=== PATIENT | male | born 1940 | race Caucasian/White ===

== ENCOUNTER → 2017-04-19 | Outpatient (CLI) | payer MEDICARE, BC ==
[~2017-04-19] MED LIST: COLACE-DPS100 MG PO; DAILY MULTIPLE1 EAC1 PO; FLOMAX DPS0.4 MG PO; MAALOX DPS30 ML PO; MIRALAX PACKET17 GM PO; PEPCID DPS20 MG PO; PHENERGAN DPS25 MG PO; TYLENOL DPS325 MG PO; ZOFRAN4 MG PO; ZYLOPRIM-DPS300 MG PO
--- NOTE | ~2017-04-19 | CST ---
Cardiac Perfusion Imaging Demographics Patient Name JOSY Ordoñez Gender Male Patient Number [id number] Race Visit Number [id number] Ethnicity Corporate ID Room Number Accession Number [id number] Height 71 inches Date of 1940 Weight 190 pounds Age 76 year(s) BSA 2.06 m Referring Physician Rik Rodriguez BMI 26.5 kg/m [facility] Date of study 04/19/2017 Physician Radiology Patric Leahy MD Supervising MD/MLP Rik Rodriguez MD NM Technologist Juan Carlos Frank Ordering Physician Rik Rodriguez MD Stress physical therapist technician Stress ECG Reading Rik Rodriguez MD Nurse Temitope Castorena Physician Obed Danielson The procedure was explained in detail to the patient. Risks, complications and alternative treatments were reviewed. Written consent was obtained. Medications Reviewed with Patient prior to Procedure. Procedure Procedure Type: Nuclear Stress Test:Pharmacological, Lexiscan Procedure Start time: 04/19/2017 07:15 Indications: Right Bundle Branch Block and PVCs. Risk Factors The patient risk factors include:former tobacco use. Conclusions Summary Perfusion Images: The overall quality of the study is good. Left ventricular cavity is noted to be normal on the stress and rest studies. There is no evidence of abnormal lung activity. The right ventricle is not visualized and cannot be assessed. Stress SPECT images demonstrate homogenous tracer distribution throughout the myocardium. Rest SPECT images demonstrate homogenous tracer distribution throughout the myocardium. Gated SPECT imaging reveals normal myocardial thickening and wall motion. The left ventricular ejection fraction was calculated to be 61%. Impression 1. Normal myocardial perfusion. 2. Normal left ventricular systolic function with an ejection fraction of 61 %. Stress Protocols Resting ECG Sinus bradycardia.with RBB pattern Resting HR:77 bpm Resting BP:144/78 mmHg Stress Protocol:Pharmacologic Predicted HR: 145 bpm Test duration: 06:00 min Reason for termination:Infusion complete ECG Findings frequent PVC's occ couplets Symptoms none Complications Procedure complication: None. Stress Interpretation Negative pharmacologic stress ECG for ischemia. Normal heart rate and blood pressure response to stress. No atrial or ventricular arrhythmias. Imaging Results Summed scores - Summed stress score: 0 - Summed rest score: 0 - Summed difference score: 0 Stress ejection Ejection fraction:61 % EDV :118 ml ESV :46 ml Stroke volume :72 ml LV mass :136 gr Imaging Protocols Rest Stress Isotope:Tc99m Myoview IV Isotope: Tc99m Myoview IV Isotope dose:10.4 mCi Isotope dose:31.7 mCi Date:04/19/2017 06:20 Date:04/19/2017 07:30 Technique: SPECT Technique: Gated Supine SPECT Supine Scan Time:30 minutes post injection Scan Time:45-60 minutes post injection Medical History Admission Data Admission date: 04/19/2017 Admission Time: 05:53 Hospital Status: Outpatient. Signatures
--- NOTE | ~2017-04-19 | ECH ---
Transthoracic Echocardiography Report (TTE) Demographics Patient Name YONI FERRIS Date of Study 04/19/2017 Patient Number [id number] Visit Number [id number] Date of 1940 Room Number Accession Number [id number] Gender Male Age 76 year(s) Referring Rik Rodriguez Multimedia Services Manager Xuan Brooks [facility] Physician Physician Interpreting Mena Bhandari MD Mechanical Shovel Operator Physician Supervising Ordering Physician Rik Rodriguez MD/GILBERTO HOBBS Nurse Stress Slot Machine Repairer Conclusions Summary Technically adequate exam. The estimated left ventricular ejection fraction is 60-65%. Diastolic assessment reveals Grade I diastolic dysfunction. Procedure Type of Study TTE procedure:Echo Complete SF. Procedure Date Date: 04/19/2017 Start: 07:27 AM Technical Quality: Adequate visualization Indications:Arrhythmia. Additional Indications:RBBB and frequent PVCs Appropriate Use Criteria: 9 Height: 71 inches Weight: 190 pounds BSA: 2.06 m Rhythm: Irregular HR: 93 bpm BP: 112/68 mmHg M-Mode/2D Measurements LV Diastolic Dimension: 4.89 cm LV Systolic Dimension: 3.26 cm LV Septum Diastolic: 0.97 cm LV PW Diastolic: 0.94 cm AO Root Dimension: 3.38 cm Cardiac Output: 10.13 l/min LA Dimension: 2.6 cm Cardiac Index: 4.92 l/min*m LA volume index: 26 ml/m LVOT: 2.28 cm RV Base: 3.9 cm LVOT VTI: 26.7 cm RV Mid: 2.9 cm LV Stroke volume: 108.96 ml RV Length: 7.4 cm LV Stroke volume index: 52.89 ml/m Doppler Measurements AV Peak Velocity: 1.61 m/s MV Peak E-Wave: 0.74 m/s AV Peak Gradient: 10.37 mmHg MV Peak A-Wave: 1.25 m/s AV Mean Gradient: 4.5 mmHg MV E/A Ratio: 0.59 LVOT Peak Velocity: 1.15 m/s MV P1/2t: 74 msec AV Area (Continuity):3.89 cm MV Deceleration Time: 255 msec MV Area (PHT): 2.97 cm PV Peak Velocity: 1.28 m/s PV Peak Gradient: 6.55 mmHg RA Area: 13.61 cm Findings Left Ventricle Normal left ventricle size and function. Diastolic assessment reveals Grade I diastolic dysfunction. Right Ventricle Normal right ventricle structure and function. Left Atrium Normal left atrial size. Right Atrium Normal right atrial size. Mitral Valve Normal mitral valve structure and function. Aortic Valve The aortic valve is moderately sclerotic. Tricuspid Valve Normal tricuspid valve structure and function. Pulmonic Valve Normal pulmonic valve structure and function. Pericardial Effusion No evidence of pericardial effusion. Miscellaneous Visualized portions of the aortic root and ascending aorta appear normal in size. Pleural Effusion No evidence of pleural effusion. Signature
== END | disposition home or self-care (01) ==
LOC: CARD 04-13 14:49
DX: I45.10 Unspecified right bundle-branch block (principal); I49.3 Ventricular premature depolarization; R19.7 Diarrhea, unspecified; R10.9 Unspecified abdominal pain; R06.02 Shortness of breath; J43.9 Emphysema, unspecified

== ENCOUNTER → 2017-04-21 | Outpatient (CLI) | payer MEDICARE, BC | END | disposition home or self-care (01) | LOC: RAD.S 08:59 | DX: R14.0 Abdominal distension (gaseous) (principal); R06.02 Shortness of breath; R18.8 Other ascites ==

== ENCOUNTER → 2017-04-22 | Outpatient (CLI) | payer MEDICARE, BC | END | disposition home or self-care (01) | LOC: RAD.S 13:53 | DX: R19.00 Intra-abdominal and pelvic swelling, mass and lump, unspecified site (principal); R59.0 Localized enlarged lymph nodes; R91.8 Other nonspecific abnormal finding of lung field ==

== ENCOUNTER 2017-04-23 21:34 | Emergency (ER) | payer MEDICARE, BC ==
--- NOTE | 2017-04-27 11:58 | ER ---
ADMIT: 04/23/2017 RM/LOC: ER [facility] MR#: [id number] [address] [address] YONI FERRIS [address] [place] [address] Emergency Room Report SEX: M AGE: 76 : 1940 DATE: 04/23/2017 HISTORY OF PRESENT ILLNESS: The patient is a 76-year-old male with past medical history of BPH, who came to the ER with chief complaint of nausea and vomiting. The patient states the last few weeks his appetite was decreased and he felt that his belly is bloated and increasing in size, so he had CT scan this morning, which was suggestive of ascites and pelvic mass, and the patient is waiting for the biopsy of the mass. The patient denies any abdominal pain, denies any chest pain or shortness of breath and states that he just suffers at the moment from the nausea and multiple episodes of non- bilious, non-bloody vomiting, the patient states that he vomited twice small amount of the fluid and states that he has some nausea, which is ongoing and moderate in severity. The patient states his appetite decreased recently and he lost a few pounds and states that he was advised by his primary doctor to have chicken noodle soup as he tolerates. PHYSICAL EXAMINATION: VITAL SIGNS: In the ER, the patient was in mild-to- moderate distress, was nauseous, but rather stable. HEAD AND NECK: Noncontributory and normal. CHEST: Clear bilaterally. HEART: Normal heart sounds without any gallops or murmurs. ABDOMEN: Mildly distended, but it is nontender, and there is no rebound, and belly has normal bowel sounds. The patient had loose bowel movement, which he had chronically and passed gas today. The rest of the physical examination is noncontributory and normal. The patient received Zofran IV 8 mg, which resolved the nausea completely, the patient received normal saline 1 L bolus and states he feels way better after that, lab work was noncontributory and negative, the patient is stable and states that he prefers to go home, the patient was discharged to home with return precautions, advised on taking food as tolerated and if like could start with a liquid more often, the patient was discharged home with return precautions, and follow up with the primary doctor. DIAGNOSES: 1. Nausea, resolved. 2. Abdominal/pelvic mass. 3. Ascites. Karl Esparza MD/ david JOB #: [id number] CC: Karl Esparza MD, Attending Physician Elisa Jolly MD, Family Physician
[2017-04-28] MEDS ORDERED: ZOFRAN4 MG PO (14:23)
[2017-04-28] MEDS ORDERED: DAILY MULTIPLE1 EAC1 PO (14:23)
[2017-04-28] MEDS ORDERED: FLOMAX DPS0.4 MG PO (14:23)
[2017-04-28] MEDS ORDERED: PEPCID DPS20 MG PO (14:23)
[2017-04-28] MEDS ORDERED: ZYLOPRIM-DPS300 MG PO (14:24)
[2017-05-05] MEDS ORDERED: MAALOX DPS30 ML PO (10:18)
[2017-05-05] MEDS ORDERED: TYLENOL DPS325 MG PO (10:18)
[2017-05-05] MEDS ORDERED: COLACE-DPS100 MG PO (10:18)
[2017-05-05] MEDS ORDERED: PHENERGAN DPS25 MG PO (10:19)
[2017-05-05] MEDS ORDERED: MIRALAX PACKET17 GM PO (10:19)
== END 2017-04-23 23:34 | disposition home or self-care (01) ==
LOC: ER 21:34
DX: R18.8 Other ascites (principal); R19.00 Intra-abdominal and pelvic swelling, mass and lump, unspecified site; Z79.899 Other long term (current) drug therapy

== ENCOUNTER 2017-04-26 09:20 | Inpatient (IN) | payer MEDICARE, BC ==
[~2017-04-26] VITALS: Ht 180.3 cm; Wt 81.0 kg
--- NOTE | 2017-04-27 08:41 | HP ---
ADMIT: 04/26/2017 RM/LOC: 429 [facility] MR#: [id number] 2620 [facility] [address] [place] [phone] YONI OHARA [address] [place] [address] History and Physical SEX: M AGE: 76 : 1940 DATE OF SERVICE: CHIEF COMPLAINT: This is admission with increasing abdominal distention, weakness, and shortness of breath. HISTORY OF PRESENT ILLNESS: Mr. Ohara is a patient of mine, who I had a long 4-year hiatus from our clinic, who presented back on the first of this past month with preop evaluation for planned cataract extraction. In this evaluation, he was found to have some symptoms consistent with a possibility of coronary disease. In this evaluation, he had EKG, which showed a right bundle-branch block pattern. He then subsequently underwent further assessment with a cardiac stress test, which showed no evidence of ischemia. Well preserved ejection fraction and an echocardiogram, which revealed grade 1 diastolic dysfunction. On followup of that visit, he reported that he had increasing diarrhea as well as had noted abdominal distention. On further evaluation, we did laboratory assessment, which showed no evidence of abnormality. We proceeded on to an ultrasound of his abdomen, which showed no evidence of cholelithiasis or ductal dilatation. No hepatic lesions or ascites. The pancreas was not well-visualized due to bowel gas wall and a large mass within the anterior abdomen to the midline raising. This extends from the umbilicus in the pelvis measuring up to approximately 26 cm as well as large mesentery adenopathy. He underwent further assessment with a CT scan of his abdomen and pelvis. This showed mild 12 mm nonspecific lymph node lateral to the ascending aorta on the left. No suspicious hilar adenopathy on the right. He had some bronchial wall thickening. No adrenal enlargement. The kidneys concentrated well. There is a huge mass centered in the mid mesentery. This demonstrates heterogeneous enhancement, measures approximately 16 cm x 10 cm and extends for at least 20 cm in the craniocaudal dimension with multiple nonspecific lymph node abnormalities. He also has evidence of ascites. His prostate gland is enlarged and indents into the bladder. There is diverticulosis of the sigmoid colon with no definite findings to suggest diverticulitis. I did talk to him about this on Wednesday. He was seen and evaluated in the emergency room and was fluid volume depleted. He then went home and presents back into the clinic this morning and at this time we will admit for continued evaluation and care and further diagnostic studies. PAST MEDICAL HISTORY: Include history of polymyalgia rheumatica, which has been stable for some time. He is not on any steroids. Otherwise, he has been well. He has BPH. FAMILY HISTORY: There is a history of cancer. He does not know what it is. His father secondary to alcoholism and cirrhosis of the liver. Mother is secondary to Alzheimer disease. CURRENT MEDICATIONS: Advil, Flomax, multivitamin, and naproxen. ALLERGIES: HE HAS NO KNOWN ALLERGIES. ADMIT: 04/26/2017 RM/LOC: 429 [facility] MR#: [id number] [address] [place] [phone] YONI OHARA [address] [place] [address] History and Physical SEX: M AGE: 76 : 1940 PAST SURGICAL HISTORY: He has had a history of gastrostomy and hernia repair. PHYSICAL EXAMINATION: GENERAL: He is alert, articulate, mildly dyspneic, weighs 194 pounds, his heart rate is 92, his blood pressure is 132/60, and his SaO2 is 98. HEART: Regular rhythm without murmur or rub. LUNGS: Clear, but diminished to auscultation. ABDOMEN: Rounded, firm. He does have fullness. Nontender. EXTREMITIES: No evidence of peripheral edema noted. ASSESSMENT AND PLAN: Admission of a very nice 76-year-old white gentleman with evidence of a large abdominal mass, concerned that this may be a sarcoma. We will admit to [facility] initially, plan paracentesis and then biopsy. I will ask Oncology to see and assist in his care. We will give him IV hydration, IV support. Zofran for nausea and Pepcid as well. In addition, PSA if it has not been assessed. We will continue to follow closely. His prognosis with this is guarded. Elisa Jolly MD/ david JOB #: [id number] CC: Elisa Jolly, Attending Physician Elisa Jolly, Family Physician
[2017-04-28] MEDS ORDERED: ZOFRAN4 MG PO (14:23)
[2017-04-28] MEDS ORDERED: FLOMAX DPS0.4 MG PO (14:23)
[2017-04-28] MEDS ORDERED: DAILY MULTIPLE1 EAC1 PO (14:23)
[2017-04-28] MEDS ORDERED: PEPCID DPS20 MG PO (14:23)
[2017-04-28] MEDS ORDERED: ZYLOPRIM-DPS300 MG PO (14:24)
--- NOTE | 2017-05-04 08:28 | CO ---
ADMIT: 04/26/2017 RM/LOC: 429 [facility] MR#: [id number] 2620 [facility] [address] [place] [phone] YONI FERRIS [address] [place] [address] Consultation SEX: M AGE: 76 : 1940 DATE OF CONSULTATION: 04/26/2017 ATTENDING PHYSICIAN: Elisa Jolly CONSULTING PHYSICIAN: Philippe Pereira MD REASON FOR CONSULTATION: Large mesenteric mass. HISTORY OF PRESENT ILLNESS: This is a pleasant, relatively healthy and active 76-year-old male, who was admitted earlier today for a planned paracentesis and core-needle biopsy of a large mesenteric mass. The patient thinks back to about 2 to 2-1/2 months of slowly increasing abdominal girth. He also experienced decreased appetite and did have a bout of 9 days of diarrhea, which resolved after starting Imodium. He was also in the last week or two, developing increasing shortness of breath and dyspnea on exertion, which prompted a workup by his primary care physician. Ultrasound showed large amount of fluid and a large abdominal mass which was then followed up by CT scan last week, confirming approximately 20 x 16 x 10 cm mid mesenteric mass. The patient did deny any noticeable weight loss in the setting of increasing fluid accumulation. He seems to recall his last colonoscopy was sometime within the last 10 years, he thinks. Prior to this most recent acute decline, he had been active on treadmill managing his fitness without significant medical problems. PAST MEDICAL HISTORY: 1. Osteoarthritis. 2. BPH. SOCIAL HISTORY: The patient lives in [place] with his . He has a very remote and light smoker, having only smoked about 2 years he says. He also does not drink alcohol that frequently these days. FAMILY HISTORY: The patient had a brother whom he believes of liver cancer and another brother who had prostate cancer. He also had a sister, who of a presumed cancer that he is not sure which one. These 3 siblings were all heavy smokers. MEDICATIONS: Home medications include: 1. Tamsulosin. 2. Tramadol. 3. Multivitamin. ALLERGIES: NO KNOWN MEDICAL ALLERGIES. REVIEW OF SYSTEMS: A complete review of systems was conducted and found to be negative except for what was mentioned above in the HPI. PHYSICAL EXAMINATION: VITAL SIGNS: Temperature 97.3, pulse 84, respiratory rate 28, blood pressure 117/63, saturating 95% on room air. ADMIT: 04/26/2017 RM/LOC: 429 [facility] MR#: [id number] [address] [address] YONI FERRIS [address] [place] [address] Consultation SEX: M AGE: 76 : 1940 GENERAL: This is a younger than stated age appearing adult male, resting comfortably in his hospital bed. He is a good historian and is alert and orientated x3. HEENT: Pupils are equal, round, and reactive to light. Sclerae are nonicteric. Mouth is free from oral lesions with moist mucous membranes. NECK: Trachea is midline. No lymphadenopathy is detected in the neck. HEART: Regular rate and rhythm with no murmurs, rubs, or gallops. LUNGS: Clear to auscultation bilaterally with normal respiratory effort. ABDOMEN: Large, tender, readily palpable mass in the central to right-side. No obvious fluid wave. Evidence of recent paracentesis completion with puncture site noted. Bowel sounds are positive. Unable to appreciate hepatosplenomegaly. EXTREMITIES: No clubbing. No cyanosis. No edema. SKIN: No rashes or pigmented lesions of concern. NEUROLOGIC: Cranial nerves II through XII are grossly intact. No focal deficits. MUSCULOSKELETAL: Strength is 5/5 in all extremities. No swollen or inflamed joints. PSYCH: Mood is euthymic. Affect is full, mood is congruent. LABORATORY AND RADIOLOGY: On 04/19/2017, cardiac stress test within normal limits. On 04/21/2017, abdominal ultrasound shows large mass and ascites. On 04/22/2017, CT chest and abdomen and pelvis, shows 16 x 10 x 20 cm mid mesenteric mass. There is large ascites. Multiple upper abdominal nodules seen. A 1.1 cm left para-aortic lymph node and 1.2 cm AP window node lymph node. On 04/26/2017; WBC 5.2, hemoglobin 14.4, platelets 273. Sodium 140, potassium 3.9, chloride 106, bicarb 27, BUN 21, creatinine 0.8, calcium 8.4, glucose 84. Total protein 6.4, albumin 3.1, AST 57, ALT 35, alkaline phosphatase 66, total bilirubin 0.6. IMPRESSION AND RECOMMENDATIONS: A 76-year-old male with large mesenteric mass. 1. Mesenteric mass. The patient's mass will be biopsied with core needle approach by IR tomorrow morning. This coupled with analysis of the ascites fluid which was removed earlier today should be adequate to provide a diagnosis. No further workup such as scopes or additional scans are recommended at this time. I will avoid sending off a shotgun approach of potential tumor markers at this time. I will however, add on PSA, LDH, and uric acid to tomorrow morning's labs. I will anticipate a clinic followup in approximately 1 weeks' time around May 04 to review ADMIT: 04/26/2017 RM/LOC: 429 [facility] MR#: [id number] [address] [place] [phone] YONI FERRIS [facility] [place] [address] Consultation SEX: M AGE: 76 : 1940 pathology report and discuss treatment options in further detail. 2. I did spend some time relating to the patient that I believe this mass was indeed cancerous, although the differential is too broad to speculate on treatment options or prognosis at this time. He appears to be breathing much easier after the paracentesis and wonders how long the fluid will take before he returns. I told them that this is variable and it could be anywhere from 3 days to 3 weeks before it re-accumulates. Thank you for this interesting consultation. We will continue to follow along and plan to follow up with final pathology results. Total time spent was 80 minutes with greater than 50% spent in direct patient contact. ECOG performance status 1. Philippe Pereira MD/ david JOB #: [id number] CC: Elisa Jolly, Attending Physician Elisa Jolly, Family Physician
--- NOTE | 2017-05-05 07:28 | DS ---
ADMIT: 04/26/2017 RM/LOC: 429 [facility] MR#: [id number] [address] [place] [place] [place], [place] [address] YONI FERRIS [address] [place] [address] General Discharge Summary SEX: M AGE: 76 : 1940 ADMISSION DATE: 04/26/2017 DISCHARGE DATE: 04/27/2017 DISCHARGE DIAGNOSIS: Large abdominal mass. PROCEDURES PERFORMED: Biopsy and paracentesis with cytology of fluid. Oncology assessment. HISTORY OF PRESENT ILLNESS: Well documented in his H and P. LABORATORY AND RADIOGRAPHIC ASSESSMENT: Admission white count was 5.2, hemoglobin 14.3, and platelet count 273,000. Serum chemistries showed sodium of 140, potassium 3.9, BUN and creatinine 21 and 0.8. His alkaline phosphatase was 66 and AST was 57. His CA-19-9 was 5.0, PSA 0.76, and CEA of 1.0. His gram stain of fluid showed no bacteria. Many unknown cells. Wound, no growth of the fluid. Anatomical pathology post procedure shows evidence of malignant lymphoma. Pathology of the biopsy after discharge showed evidence of non-Hodgkin lymphoma. His history of present illness well documented in his H and P. HOSPITAL COURSE: He was admitted to [facility] with increasing abdominal girth, increasing shortness of breath. As an outpatient, he had had assessment performed which showed a large bulky abdominal mass with ascites. As he was extremely uncomfortable with his abdominal girth, he was admitted to [facility] for diagnostic studies and treatment. He was seen and evaluated by Dr. Pereira in Oncology, underwent serologies which were all negative, which included CEA, CA-19-9, and PSA. He also underwent further assessment and had paracentesis performed large volume as well as a core biopsy. Post biopsy, he was comfortable and was subsequently discharged home and will have follow up with myself as well as Dr. Pereria as his diagnostic studies become available to us. He was discharged in stable condition. Elisa Jolly MD/ david JOB #: [id number] CC: Elisa Jolly MD, Attending Physician Elisa Jolly MD, Family Physician
[2017-05-05] MEDS ORDERED: TYLENOL DPS325 MG PO (10:18)
[2017-05-05] MEDS ORDERED: COLACE-DPS100 MG PO (10:18)
[2017-05-05] MEDS ORDERED: MAALOX DPS30 ML PO (10:18)
[2017-05-05] MEDS ORDERED: MIRALAX PACKET17 GM PO (10:19)
[2017-05-05] MEDS ORDERED: PHENERGAN DPS25 MG PO (10:19)
== END 2017-04-27 15:23 | disposition home or self-care (01) | DRG 841 ==
LOC: 4PCU 09:20
PROVIDERS: ADMIT Internal Medicine
PROC: 0W9G3ZX Drainage of Peritoneal Cavity, Percutaneous Approach, Diagnostic (ICD-10-PCS; principal; 2017-04-26)
PROC: 0WBH3ZX Excision of Retroperitoneum, Percutaneous Approach, Diagnostic (ICD-10-PCS; 2017-04-27)
DX: C85.93 Non-Hodgkin lymphoma, unspecified, intra-abdominal lymph nodes (principal); R18.8 Other ascites; I45.10 Unspecified right bundle-branch block; N40.0 Benign prostatic hyperplasia without lower urinary tract symptoms; K57.30 Diverticulosis of large intestine without perforation or abscess without bleeding; M35.3 Polymyalgia rheumatica; M19.90 Unspecified osteoarthritis, unspecified site; Z87.891 Personal history of nicotine dependence

== ENCOUNTER → 2017-04-29 | Outpatient (CLI) | payer MEDICARE, BC | END | disposition home or self-care (01) | LOC: RAD.S 07:44 | PROC: 0W9G3ZZ Drainage of Peritoneal Cavity, Percutaneous Approach (ICD-10-PCS; principal; 2017-04-29) | DX: R18.8 Other ascites (principal) ==

== ENCOUNTER 2017-05-01 20:03 | Inpatient (IN) | payer MEDICARE, BC ==
[~2017-05-01] VITALS: Ht 180.3 cm; Wt 83.9 kg
[~2017-05-01 20:03] MED LIST changes: -COLACE-DPS100 MG PO; -MAALOX DPS30 ML PO; -MIRALAX PACKET17 GM PO; -PHENERGAN DPS25 MG PO; -TYLENOL DPS325 MG PO
--- NOTE | 2017-05-03 08:38 | HP ---
ADMIT: 05/01/2017 RM/LOC: 511 [facility] MR#: [id number] 2620 [facility] [address] [place] [phone] YONI FERRIS [address] [place] [address] History and Physical SEX: M AGE: 76 : 1940 DATE OF SERVICE: 05/02/2017 REASON FOR HOSPITALIZATION: Intractable emesis. HISTORY OF PRESENT ILLNESS: This is a 76-year-old, male patient, who has recently been undergoing evaluation for a mediastinal lymph node and "markedly abnormal findings" within the abdomen with a large mass in the central abdomen and pelvis noted on ultrasound and confirmed on CAT scan. This underwent biopsy last week and was found to be a non-Hodgkin's lymphoma. He has been receiving routine paracentesis and tomorrow 05/03, it is arranged for him to undergo a pigtail catheter placement for drainage of his recurrent ascites. Unfortunately, he got into trouble over the weekend and was unable to hold down liquids or food and became dehydrated. His called, and we had him come to the emergency room where he was evaluated, and we are now admitting him for further hydration management and care. The patient's other medical history includes that of osteoarthritis and BPH. In addition to the above findings on CAT scan, he was not found to have any hydronephrosis or adrenal enlargement. The remainder of his solid organ structure was intact. FAMILY HISTORY: Noncontributory. SOCIAL HISTORY: His is at bedside and is attentive to his needs. MEDICATIONS: At the time of presentation included oral home Zofran therapy. REVIEW OF SYSTEMS: Tense abdomen, some dyspnea, nausea with recurrent emesis, general weakness, no bleeding, chest pain, or palpitations. PHYSICAL EXAMINATION: GENERAL: He is pleasant, thin frail in general appearance. VITAL SIGNS: His blood pressure 140/79, temperature 97.1. HEART: Regular, rate is controlled. LUNGS: Clear. ADMIT: 05/01/2017 RM/LOC: 511 [facility] MR#: [id number] [address] [address] YONI FERRIS [address] [place] [address] History and Physical SEX: M AGE: 76 : 1940 ABDOMEN: Round and tense and there is tenderness in the right lower quadrant. LABORATORY DATA: BUN is 30, creatinine is 1.2, white count is 7.2, hemoglobin is 14.8 and biopsy recently showed non-Hodgkin's lymphoma. IMPRESSION: Non-Hodgkin's lymphoma with a large intraabdominal mass and recurrent ascites contributing to his current presentation of nausea and intractable emesis. PLAN: He is admitted. We will give him IV fluids. Keep him on the schedule for his pigtail catheter placement tomorrow. We will ask Dr. Pereira to follow. Check cortisol level, and give him a stress dose of steroid. Nadeem Wilhelm DO/ modkerwin JOB #: [id number] CC: Elisa Jolly, Attending Physician Elisa Jolly, Family Physician
[2017-05-05] MEDS ORDERED: TYLENOL DPS325 MG PO (10:18)
[2017-05-05] MEDS ORDERED: COLACE-DPS100 MG PO (10:18)
[2017-05-05] MEDS ORDERED: MAALOX DPS30 ML PO (10:18)
[2017-05-05] MEDS ORDERED: MIRALAX PACKET17 GM PO (10:19)
[2017-05-05] MEDS ORDERED: PHENERGAN DPS25 MG PO (10:19)
--- NOTE | 2017-05-13 16:41 | ER ---
ADMIT: 05/01/2017 RM/LOC: [address] [facility] MR#: [id number] [facility] [address] [place], [place] [id number] YONI FERRIS [address] [place] [address] Emergency Room Report SEX: M AGE: 76 : 1940 DATE: 05/01/2017 This 76-year-old gentleman, had recently been diagnosed with an abdominal pelvic mass. He just found out that it was cancer, comes in tonight complaining of intractable vomiting. He states he is not able to drink as anything goes into stomach he rapidly vomits. Past history significant for gas and degenerative disease, ascites for which he has had a peritoneal tap. He denies any other symptoms other than he is feeling increasingly weak. PHYSICAL EXAMINATION: GENERAL: Reveals an elderly gentleman, who is in a moderate amount of distress. LUNGS: Clear to auscultation. CARDIOVASCULAR: No murmur. Regular rate and rhythm. ABDOMEN: Soft, distended with what appears to be a fluid wave with decreased bowel sounds. EXTREMITIES: Unremarkable. His CBC is normal. CMP is normal. The patient was given IV fluids and Zofran. He continues to be extremely sick to his stomach and does not feel as though he could hold anything down for him to go home. Subsequently admitted with a diagnosis of intractable vomiting. Eran Lawson MD/ mandol JOB #: [id number] CC: Elisa Jolly MD, Attending Physician Elisa Jolly MD, Family Physician
--- NOTE | 2017-06-16 07:58 | DS ---
ADMIT: 05/01/2017 RM/LOC: 511 [facility] MR#: [id number] [facility] [address] [place] [id number] YONI FERRIS [address] [place] [address] Discharge Summary SEX: M AGE: 76 : 1940 ADMISSION DATE: 05/01/2017 DISCHARGE DATE: 05/04/2017 DISCHARGE DIAGNOSES: 1. Intractable ascites secondary to large abdominal mass, which recently was biopsied with evidence of non-Hodgkin lymphoma. 2. Intractable nausea, vomiting with evidence of dehydration. 3. Placement of abdominal PleurX catheter by Interventional Radiology, secondary to intractable ascites. HISTORY OF PRESENT ILLNESS: His history of present illness is well documented in his H and P. His laboratory and radiographic assessment is as follows. On Admission, his hemoglobin was 14.6, white blood cell count 7.2, and platelet count 336,000. Sodium 136, potassium 4.3, BUN and creatinine 30 and 1.2. Albumin of 3.1, his cortisol was 24.23, his INR was 1.13, his hepatitis B serology was nonreactive. Ultrasound of his abdomen shows ascites with largest amount in the left upper quadrant. HOSPITAL COURSE: This elderly white gentleman, who recently was diagnosed with non-Hodgkin lymphoma secondary to persistent abdominal distention and ascites with large intraperitoneal mass with recent biopsy, which was diagnostic as non-Hodgkin lymphoma, was admitted to [facility] with intractable nausea. We had planned for placement of an intraperitoneal catheter in the morning prior to his admission. He was unable to tolerate fluids and subsequently was admitted with placement of catheter on this admission. He did have followup through Oncology as well. He had placement of the drain with relief of his symptoms of abdominal distention. We did teach his how to care for the drain and drain it. He was seen and evaluated by Oncology. He continued to do well. He was rehydrated. His nausea improved. He subsequently was discharged home with home health care nursing to help his with his peritoneal tube, sterile drainage etc. Phenergan 25 mg p.o. p.r.n. nausea. Diet as tolerated. Push fluids. MiraLAX as needed for constipation. He will have followup with me in 10 days, but will have continued followup through Oncology for initiation of chemotherapy. He was discharged in stable condition. Elisa Jolly MD/ david JOB #: [id number] CC: Elisa Jolly MD, Attending Physician Elisa Jolly MD, Family Physician
== END 2017-05-04 11:40 | disposition home health service (06) | DRG 841 ==
LOC: ER 20:03 → 5MS 21:31
PROVIDERS: ADMIT Internal Medicine
PROC: 0W9G30Z Drainage of Peritoneal Cavity with Drainage Device, Percutaneous Approach (ICD-10-PCS; principal; 2017-05-03)
PROC: BW11ZZZ Fluoroscopy of Abdomen and Pelvis (ICD-10-PCS; principal; 2017-05-03)
DX: C85.90 Non-Hodgkin lymphoma, unspecified, unspecified site (principal); R18.8 Other ascites; E46 Unspecified protein-calorie malnutrition; E86.0 Dehydration; N40.0 Benign prostatic hyperplasia without lower urinary tract symptoms; M19.90 Unspecified osteoarthritis, unspecified site